=== PATIENT | male | born 1980 | race Caucasian/White ===

== ENCOUNTER 2023-09-18 16:53 | Emergency (ER) | payer BC ==
[2023-09-18] MEDS ORDERED: Aspirin 81 MG Tab.Chew PO ONE (17:18)
[2023-09-18] MEDS ORDERED: Sodium Chloride 0.9% 10 ML Syringe FLUSH PRN (17:18)
[2023-09-18 17:32] LABS: BASOPHILS ABSOLUTE AUTO 0.1 K/mm3 (0.0-0.2); BASOPHILS PERCENT AUTO 0.8 % (0.0-1.0); EOSINOPHILS ABSOLUTE AUTO 0.2 K/mm3 (0.0-0.4); EOSINOPHILS PERCENT AUTO 2.4 % (0.0-6.0); HEMATOCRIT 45.8 % (42.0-52.0); HEMOGLOBIN 15.9 gm/dl (14.0-18.0); IMMATURE GRAN ABSOLUTE AUTO 0.02 K/mm3 (0.00-0.05); IMMATURE GRAN PERCENT AUTO 0.3 % (0.0-0.4); LYMPHOCYTES ABSOLUTE AUTO 2.2 K/mm3 (1.0-4.8); LYMPHOCYTES PERCENT AUTO 28.3 % (24.0-44.0); MEAN CORPUSCULAR HEMOGLOBIN 30.2 pg (28.0-32.0); MEAN CORPUSCULAR HGB CONC 34.7 g/dl (32.0-36.0); MEAN CORPUSCULAR VOLUME 87.1 fl (83.0-99.0); MEAN PLATELET VOLUME 9.9 fl (9.4-12.4); MONOCYTES ABSOLUTE AUTO 0.8 K/mm3 (0.0-0.8); MONOCYTES PERCENT AUTO 9.7 % (0.0-8.0); NEUTROPHILS ABSOLUTE AUTO 4.6 K/mm3 (1.8-7.7); NEUTROPHILS PERCENT AUTO 58.5 % (41.0-71.0); PLATELET COUNT,PLT 253 K/mm3 (150-400); RED BLOOD CELL COUNT 5.26 M/mm3 (4.52-5.90); WHITE BLOOD CELL COUNT,WBC 7.84 K/mm3 (3.9-11.3)
[2023-09-18 17:49] LABS: A/G RATIO 1.1 (1-2); ALBUMIN 4.2 g/dl (3.4-5.0); ALKALINE PHOSPHATASE 90 U/L (46-116); ANION GAP 12.1 (5-15); BILIRUBIN TOTAL 0.4 mg/dL (0.2-1.0); BLOOD UREA NITROGEN,BUN 19 mg/dL (7-18); BUN/CREATININE RATIO 14.6 (14-18); CALCIUM 9.5 mg/dL (8.5-10.1); CARBON DIOXIDE,CO2 28 mEq/L (21-32); CHLORIDE,CL 103 mEq/L (98-107); CREATININE 1.3 mg/dL (0.7-1.3); EST CRCL DRUG DOSING (CG) 77.23 mL/min; ESTIMATED GFR 69 mL/min (>60); PROTEIN TOTAL,TP 8.1 g/dl (6.4-8.2); SODIUM,NA 139 mEq/L (136-145); TROPONIN I HIGH SENSITIVITY 5 pg/mL (<=76)
[2023-09-18 17:54] LABS: GLUCOSE RANDOM 101 mg/dL (70-99); POTASSIUM,K 4.1 mEq/L (3.5-5.1)
== END 2023-09-18 19:09 | disposition home or self-care (01) ==
LOC: JD.ED 16:53
DX: R07.89 Other chest pain (principal)
CPT/HCPCS: 36415; 71045; 80053; 84484; 85025; 85379; 93005; 99285; A9270; J3490; 93010; 99284